=== PATIENT | male | born 1985 | race Two or more races ===

== ENCOUNTER 2018-11-04 11:53 | Emergency (ER) | payer OTHER ==
[~2018-11-04] VITALS: Ht 177.8 cm; Wt 81.6 kg
[2018-11-04] VITALS (20 sets, daily range): BP systolic 108–154; BP diastolic 74–100
--- NOTE | 2018-11-04 12:00 | NUR ---
ED Nurse Note: Received verbal order for behavioral restraint due to severe agitation and restless and resistant to care. Behavior restraints applied on all extremites and every 15 minutes charting initiated. Skin intact and no s/s of circulation problem noted at this moment.
[2018-11-04] MEDS ORDERED: LORazepam Inj 2mg/ml 1ml ONE ×3 (12:01→17:06)
--- NOTE | 2018-11-04 12:10 | NUR ---
ED Nurse Note: Pt continuosly being restless and agiated, and twisting body constantly. Pt is diaphoric. Unable to obtain temperature.
[2018-11-04] MEDS ORDERED: levETIRAcetam 500 MG in D5W 110 ML IV ONE (12:15)
[2018-11-04] MEDS ORDERED: LORazepam Inj 2mg/ml 1ml IV ONE ×3 (12:15→17:15)
[2018-11-04 12:24] LABS: HEMATOCRIT 51.3 % (42.0-52.0); HEMOGLOBIN 16.8 G/DL (14.2-18.0); MEAN CORPUSCULAR VOLUME 91 FL (80-99); PLATELET COUNT 301 K/UL (150-450); RED BLOOD COUNT 5.62 M/UL (4.70-6.10); RED CELL DISTRIBUTION WIDTH 12.3 % (11.6-14.8); WHITE BLOOD COUNT 14.3 K/UL (4.8-10.8)
[2018-11-04] MEDS ORDERED: KEPPRA500 M4 ORAL (12:35)
[2018-11-04 12:39] LABS: BLOOD UREA NITROGEN 11 mg/dL (7-18); CHLORIDE 104 MMOL/L (98-107); POTASSIUM 4.1 MMOL/L (3.5-5.1); SODIUM 143 MMOL/L (136-145)
[2018-11-04 12:41] LABS: ANION GAP 23 mmol/L (5-15); CALCIUM 9.2 MG/DL (8.5-10.1); CARBON DIOXIDE 16 MMOL/L (21-32); CREATININE 1.5 MG/DL (0.55-1.30)
[2018-11-04 12:44] LABS: ALANINE AMINOTRANSFERASE 43 U/L (12-78); ALBUMIN 4.7 G/DL (3.4-5.0); ALBUMIN/GLOBULIN RATIO 1.3 (1.0-2.7); ALKALINE PHOSPHATASE 115 U/L (46-116); ASPARTATE AMINO TRANSFERASE 30 U/L (15-37); BILIRUBIN,TOTAL 0.2 MG/DL (0.2-1.0); CREATINE KINASE 186 U/L (26-308)
[2018-11-04] MEDS ORDERED: KEPPRA XR500 MG ORAL (14:24)
--- NOTE | 2018-11-04 15:00 | NUR ---
ED Nurse Note: Pt still agitated but not trying to get up anymore. Received verbal order to remove restraints from both ankles and they were removed. Skin intact and clean.
--- NOTE | 2018-11-04 15:15 | Emergency Room Report ---
History of Present Illness General Chief Complaint: Seizure Source: Patient, Significant Other, EMS (Penelope Quevedo DO) Present Illness HPI This patient is brought in by EMS for multiple seizures. He is accompanied by his girlfriend. She reports that around 8 AM he had a seizure. She states that he took his Keppra after that but then subsequently had 3 more seizures. He is brought in by EMS and is combative and postictal. He has a history of seizure disorder. His girlfriend states he has a breakthrough seizure about once every 3 weeks. He normally does not have this many seizures in a row. There is no recent illness. He does smoke marijuana but does not do any other drugs. He normally does not drink alcohol. She admits that 5 days ago he did drink alcohol but that is not typical for him. There is been no recent trauma. There are no other complaints. The patient was very combative and unable to give me a history. (Penelope Quevedo DO) Allergies: Coded Allergies: No Known Allergies (Unverified , 11/04/18) Patient History Past Medical History: see triage record, seizures Social History: Reports: alcohol use - occ, drug use - THC; Denies: smoking Reviewed Nursing Documentation: PMH: Agreed; PSxH: Agreed (Penelope Quevedo DO) Nursing Documentation-PMH Past Medical History: No History, Except For (Penelope Quevedo DO) Review of Systems All Other Systems: negative except mentioned in HPI (Penelope Quevedo DO) Physical Exam Vital Signs Date Time Temp Pulse Resp B/P (MAP) Pulse Ox O2 Delivery O2 Flow Rate FiO2 11/04/18 11:41 110 22 97 Sp02 EP Interpretation: reviewed, normal General Appearance: no apparent distress, alert, GCS 15, non-toxic Head: normocephalic, atraumatic Eyes: bilateral eye normal inspection, bilateral eye PERRL ENT: hearing grossly normal, normal pharynx, no angioedema, normal voice Neck: full range of motion, supple/symm/no masses Respiratory: chest non-tender, lungs clear, normal breath sounds, no respiratory distress, no retraction, no accessory muscle use, speaking full sentences Cardiovascular #1: regular rate, rhythm, no edema Gastrointestinal: normal bowel sounds, non tender, soft, non-distended, no guarding, no rebound Rectal: deferred Musculoskeletal: back normal, gait/station normal, normal range of motion, non- tender Neurologic: alert, oriented x3, responsive, motor strength/tone normal, sensory intact, speech normal Psychiatric: judgement/insight normal, memory normal, mood/affect normal, no suicidal/homicidal ideation Skin: normal color, no rash, warm/dry, well hydrated (Penelope Quevedo DO) Medical Decision Making Restraint Attestation I, Penelope Quevedo MD, have personally evaluated this patient. Laboratory tests have been reviewed and addressed accordingly. The patient is deemed to present a danger to themselves and/or others. This is based on the exam, history ( provided by patient, EMS/[facility] and/or family) and observed or reported behavior. Attempts for non-invasive measures have been considered and/or attempted, however, have been futile. It is in the best interest of the nursing staff, the patient, and others involved in this patient's care that behavioral restraints be applied. Patient evaluation reveals the following: Pulling on lines, attempting to hit/ punch staff, kicking, Altered and aggressive. (Penelope Quevedo DO) Diagnostic Impression: Primary Impression: Uncontrolled seizures ER Course This patient presents with recurrent seizures. On arrival the patient was combative and had to be restrained. He was a danger to himself and others. He was uncooperative. He was given 2 doses of IV Ativan and Keppra IV. At the time of this dictation, the patient is sedated and sleeping. He had 5 seizures prior to initiation of benzodiazepines and IV anti-epileptic medications. I feel that this patient's seizures are out of control and that he needs observation/monitoring and further evaluation by neurology. Another consideration is medication non-compliance vs inability of keppra to control this patients seizures. No e/o ICP or infection. The patient will be admitted for uncontrolled seizures. Laboratory Tests Test 11/04/18 11:50 11/04/18 11:58 White Blood Count 14.3 K/UL (4.8-10.8) H Red Blood Count 5.62 M/UL (4.70-6.10) Hemoglobin 16.8 G/DL (14.2-18.0) Hematocrit 51.3 % (42.0-52.0) Mean Corpuscular Volume 91 FL (80-99) Mean Corpuscular Hemoglobin 29.9 PG (27.0-31.0) Mean Corpuscular Hemoglobin Concent 32.7 G/DL (32.0-36.0) Red Cell Distribution Width 12.3 % (11.6-14.8) Platelet Count 301 K/UL (150-450) Mean Platelet Volume 6.8 FL (6.5-10.1) Neutrophils (%) (Auto) % (45.0-75.0) Lymphocytes (%) (Auto) % (20.0-45.0) Monocytes (%) (Auto) % (1.0-10.0) Eosinophils (%) (Auto) % (0.0-3.0) Basophils (%) (Auto) % (0.0-2.0) Differential Total Cells Counted 100 Neutrophils % (Manual) 79 % (45-75) H Lymphocytes % (Manual) 10 % (20-45) L Monocytes % (Manual) 5 % (1-10) Eosinophils % (Manual) 1 % (0-3) Basophils % (Manual) 0 % (0-2) Band Neutrophils 5 % (0-8) Platelet Estimate Adequate Platelet Morphology Normal Red Blood Cell Morphology Normal Sodium Level 143 MMOL/L (136-145) Potassium Level 4.1 MMOL/L (3.5-5.1) Chloride Level 104 MMOL/L (98-107) Carbon Dioxide Level 16 MMOL/L (21-32) L Anion Gap 23 mmol/L (5-15) H Blood Urea Nitrogen 11 mg/dL (7-18) Creatinine 1.5 MG/DL (0.55-1.30) H Estimate Glomerular Filtration Rate 54.2 mL/min (>60) Glucose Level 167 MG/DL (74-106) H Calcium Level 9.2 MG/DL (8.5-10.1) Total Bilirubin 0.2 MG/DL (0.2-1.0) Aspartate Amino Transferase (AST) 30 U/L (15-37) Alanine Aminotransferase (ALT) 43 U/L (12-78) Alkaline Phosphatase 115 U/L (46-116) Total Creatine Kinase 186 U/L (26-308) Total Protein 8.2 G/DL (6.4-8.2) Albumin 4.7 G/DL (3.4-5.0) Globulin 3.5 g/dL Albumin/Globulin Ratio 1.3 (1.0-2.7) Levetiracetam Level Pending Serum Alcohol < 3 mg/dL Urine Opiates Screen Negative (NEGATIVE) Urine Barbiturates Screen Negative (NEGATIVE) Phencyclidine (PCP) Screen Negative (NEGATIVE) Urine Amphetamines Screen Negative (NEGATIVE) Urine Benzodiazepines Screen Negative (NEGATIVE) Urine Cocaine Screen Negative (NEGATIVE) Urine Marijuana (THC) Screen Positive (NEGATIVE) H (Penelope Quevedo DO) ER Course Dr. Solorio for possible transfer to [facility]. (Al Lennon MD) EKG Diagnostic Results Rate: tachycardiac Rhythm: other - S.tachycardia ST Segments: no acute changes (Penelope Quevedo DO) Rhythm Strip Diag. Results EP Interpretation: yes Rate: 120's Rhythm: no PVC's, no ectopy, other - S.tachycardia (Penelope Quevedo DO) CT/MRI/US Diagnostic Results CT/MRI/US Diagnostic Results : Imaging Test Ordered: CT head Impression No acute findings. Specifically no intracranial bleed, mass effect or edema. See official report. (Penelope Quevedo DO) Last Vital Signs Date Time Temp Pulse Resp B/P (MAP) Pulse Ox O2 Delivery O2 Flow Rate FiO2 11/04/18 11:41 110 22 97 Status: improved (Penelope Quevedo DO) Disposition: XFER SHT-TRM HOSP Condition: Stable Referrals: NON PHYSICIAN (PCP) Penelope Quevedo DO Nov 04, 2018 15:15 Al Lennon MD Nov 04, 2018 16:50
--- NOTE | 2018-11-04 15:45 | NUR ---
ED Nurse Note: Pt is calm AAO x4 but fatigued. Pt educated on restraints with significant other at bedside and was able to verbalize and agree with staying calm in bed to avoid injury. All restraints were removed with doctor's verbal order. Skin warm and intact.
--- NOTE | 2018-11-04 16:51 | Diagnostic Imaging Report ---
Indications: Altered mental status Technique: Spiral acquisitions obtained through the brain. Angled axial and coronal 5 x 5 mm slices were reconstructed. Total dose length product 1502.76 mGycm. CTDI vol(s) 70.38 mGy. Dose reduction achieved using automated exposure control Comparison: None. Findings: No acute intracranial hemorrhage or edema. No mass effect or midline shift. Normal gomez-white differentiation. Visualized orbits are unremarkable. The calvarium is intact. There is minimal sphenoid sinus mucosal disease. There is a possible empty sella Impression: Negative Minimal sinus disease incidentally noted The CT scanner at [facility] is accredited by the [employer] and the scans are performed using protocols designed to limit radiation exposure to as low as reasonably achievable to attain images of sufficient resolution adequate for diagnostic evaluation.
--- NOTE | 2018-11-04 18:08 | NUR ---
ED Nurse Note: Report given to Lili is 1830.
--- NOTE | 2018-11-04 19:10 | NUR ---
HAND-OFF: Report given to KASHIF Valladares. Transportation will be here to slat pickler the pt soon. Report given to Lizandro by michael simmons RN and Jacquelyn was endorsed to tell EMT to stop by at the admitting office upon arrival at [facility] as Ray requested.
--- NOTE | 2018-11-04 19:35 | NUR ---
ED Nurse Note: recieved pt on gurney sleeping, pt is arousable but lethagic like nd post-ictal, pt spouse at bedside, pt is on cardic monitoring, placed on seizur precautions and placed padding on side rails, no sz activity noted, pt has patent saline lock, intact and patent, pt waiting for transport for transfer to another hospital, will resume care as ordered and continue to closely monitor while waiting.
--- NOTE | 2018-11-08 11:20 | Cardiology Report ---
APPROVED REPORT EKG Measurement Heart [id number] Sinus tachycardia Possible Left atrial enlargement Lateral infarct, age undetermined Possible Inferior infarct, age undetermined Abnormal ECG
== END 2018-11-04 22:00 | disposition short-term general hospital (02) ==
LOC: EDBD 11:53 → EMR 12:30
DX: R56.9 Unspecified convulsions (principal); F12.90 Cannabis use, unspecified, uncomplicated
CPT/HCPCS: 36415; 70450; 80053; 80299; 80307; 80329; 82550; 85007; 85025; 93005; 96361; 96374; 96375; 96376; 99285; J1953